=== PATIENT | male | born 1965 | race Caucasian/White ===

== ENCOUNTER 2022-01-10 07:50 | Outpatient (CLI) | payer BC | END 2022-01-10 07:51 | disposition home or self-care (01) | LOC: CSHCP 07:50 | PROVIDERS: ATTEND Internal Medicine | DX: J45.990 Exercise induced bronchospasm (principal); J44.9 Chronic obstructive pulmonary disease, unspecified | CPT/HCPCS: 94060; 94726; 94729; 94760 ==

== ENCOUNTER 2023-03-27 08:41 | Outpatient (CLI) | payer BC ==
[2023-03-27] MEDS ORDERED: Magnevist 469MG/ML 20 ML VIAL ONE (10:00)
== END 2023-03-27 08:42 | disposition home or self-care (01) ==
LOC: CSHMRI 08:41
PROVIDERS: ATTEND Psychiatry & Neurology Neurology
DX: R51.9 Headache, unspecified (principal); M48.02 Spinal stenosis, cervical region; G93.9 Disorder of brain, unspecified; M47.812 Spondylosis without myelopathy or radiculopathy, cervical region
CPT/HCPCS: 70553; 72156